=== PATIENT | female | born 1995 | race Caucasian/White ===

== ENCOUNTER 2017-04-23 06:23 | Emergency (ER) | payer MEDICAID ==
[2017-04-23] MEDS ORDERED: AMOXICILLIN TRIHYDRATE 500 MG CAPSULE PO ONE (07:17)
[2017-04-23] MEDS ORDERED: DEXAMETHASONE 4 MG TABLET PO ONE (07:17)
--- NOTE | 2017-04-23 07:27 | ER Document Report ---
ED General - General Chief Complaint: Ear Pain Stated Complaint: EAR PAIN Time Seen by Provider: 04/23/17 07:17 TRAVEL OUTSIDE OF THE [place] IN LAST 30 DAYS: No - HPI Patient complains to provider of: Bilateral ear pain sore throat Notes: Patient coming in for bilateral ear pain and sore throat ongoing for the last 2 days. Patient states mother has similar symptoms. Patient denies occult and swelling difficulty in talking difficulty breathing. Patient denies any other sick contacts no recent antibiotics. Patient is resting comfortably upon my evaluation. - Related Data Allergies/Adverse Reactions: No Known Allergies Allergy (Unverified 04/23/17 06:37) Past Medical History - Social History Smoking Status: Unknown if Ever Smoked Family History: Reviewed & Not Pertinent Patient has suicidal ideation: No Patient has homicidal ideation: No Renal/ Medical History: Denies: Hx Peritoneal Dialysis Review of Systems - Review of Systems Constitutional: No symptoms reported EENT: Ear pain, Throat pain Cardiovascular: No symptoms reported Respiratory: No symptoms reported Gastrointestinal: No symptoms reported Genitourinary: No symptoms reported Female Genitourinary: No symptoms reported Musculoskeletal: No symptoms reported Skin: No symptoms reported Hematologic/Lymphatic: No symptoms reported Neurological/Psychological: No symptoms reported Physical Exam - Vital signs Vitals: Temp Pulse Resp BP Pulse Ox 99.4 F 144 H 20 94/44 L 99 04/23/17 06:31 04/23/17 06:31 04/23/17 06:31 04/23/17 06:31 04/23/17 06:31 Interpretation: Normal - General General appearance: Appears well, Alert - HEENT Head: Normocephalic, Atraumatic Eyes: Normal Conjunctiva: Normal Cornea: Normal Eyelashes: Normal Pupils: PERRL Ears: Normal External canal: Normal Tympanic membrane: Normal Nasal: Normal Mucous membranes: Dry Pharynx: Erythema, Exudate - No signs of airway swelling the uvula edema no signs of airway compromise consistent with erythema exudates with strep throat Neck: Normal - Respiratory Respiratory status: No respiratory distress Chest status: Nontender Breath sounds: Normal Chest palpation: Normal - Cardiovascular Rhythm: Regular Heart sounds: Normal auscultation Murmur: No - Abdominal Inspection: Normal Distension: No distension Bowel sounds: Normal Tenderness: Nontender Organomegaly: No organomegaly - Back Back: Normal, Nontender - Extremities General upper extremity: Normal inspection, Nontender, Normal color, Normal ROM , Normal temperature General lower extremity: Normal inspection, Nontender, Normal color, Normal ROM , Normal temperature, Normal weight bearing. No: Meme's sign - Neurological Neuro grossly intact: Yes Cognition: Normal Orientation: AAOx4 [place] Coma Scale Eye Opening: Spontaneous [place] Coma Scale Verbal: Oriented [place] Coma Scale Motor: Obeys Commands [place] Coma Scale Total: 15 Speech: Normal Motor strength normal: LUE, RUE, LLE, RLE Sensory: Normal - Psychological Associated symptoms: Normal affect, Normal mood - Skin Skin Temperature: Warm Skin Moisture: Dry Skin Color: Normal Course - Re-evaluation Re-evalutation: 04/23/17 13:55 Patient examinations consistent with strep throat. Patient was offered Bicillin versus amoxicillin patient chose amoxicillin patient was also given a dose of Decadron encouraged to use Tylenol Motrin for pain control patient is able tolerate p.o. here will be discharged home. - Vital Signs Vital signs: Temp Pulse Resp BP Pulse Ox 99.4 F 72 16 105/63 100 04/23/17 06:31 04/23/17 08:05 04/23/17 08:05 04/23/17 08:05 04/23/17 08:05 Discharge - Discharge Clinical Impression: Strep pharyngitis Condition: Good Disposition: HOME, SELF-CARE Instructions: Use of [id number] Ibuprofen ([facility]), Strep Throat ([facility]) Additional Instructions: Examination today is consistent with strep pharyngitis. Highly recommend she follow-up with your primary care provider. Please take medications as prescribed. Please take Tylenol and Motrin for pain control. Please make sure that you are drinking plenty of water and fluids Prescriptions: Amoxicillin 500 mg PO TID #30 capsule
[2017-04-23 08:25] VITALS: BP 105/63
== END 2017-04-23 08:05 | disposition home or self-care (01) ==
LOC: ER 06:23
DX: J02.0 Streptococcal pharyngitis (principal); H92.03 Otalgia, bilateral; J02.9 Acute pharyngitis, unspecified
CPT/HCPCS: 99283; 87880; J3490

== ENCOUNTER 2020-02-28 17:57 | Emergency (ER) | payer SELFPAY ==
[2020-02-28] MEDS ORDERED: IBUPROFEN 800 MG TABLET PO ONE (18:26)
--- NOTE | 2020-02-28 18:30 | ER Document Report ---
HPI - HPI Patient complains to provider of: Left foot pain Time Seen by Provider: 02/28/20 18:23 Onset/Duration: Persistent Quality of pain: Achy Pain Level: 3 Context: Patient presents complaining of left foot pain for the past 4 days. Patient noticed a lump to her foot yesterday. Patient denies any known injury. Associated Symptoms: Other - Left foot pain. denies: Fever Exacerbated by: Standing, Movement, Walking Relieved by: Denies Similar symptoms previously: No Recently seen / treated by doctor: No - ROS ROS below otherwise negative: Yes Systems Reviewed and Negative: Yes All other systems reviewed and negative - CONSTITUTIONAL Constitutional: DENIES: Fever - NEURO Neurology: DENIES: Weakness - MUSCULOSKELETAL Musculoskeletal: REPORTS: Extremity pain - DERM Skin Color: Normal Skin Problems: None Past Medical History - General Information source: Patient - Social History Smoking Status: Never Smoker Frequency of alcohol use: None Drug Abuse: None Occupation: None Lives with: Family Family History: Reviewed & Not Pertinent - Medical History Medical History: Negative Renal/ Medical History: Denies: Hx Peritoneal Dialysis Surgical Hx: Negative Vertical Provider Document - CONSTITUTIONAL Agree With Documented VS: Yes Exam Limitations: No Limitations General Appearance: WD/WN, No Apparent Distress - INFECTION CONTROL TRAVEL OUTSIDE OF THE [place] IN LAST 30 DAYS: No - HEENT HEENT: Atraumatic, Normocephalic - NECK Neck: Normal Inspection, Supple. negative: Lymphadenopathy-Left, Lymphadenopathy-Right - RESPIRATORY Respiratory: Breath Sounds Normal, No Respiratory Distress - CARDIOVASCULAR Cardiovascular: Regular Rate, Regular Rhythm, No Murmur - BACK Back: Normal Inspection - MUSCULOSKELETAL/EXTREMETIES Musculoskeletal/Extremeties: MAEW, Tender - Tenderness over cuboid bone of left foot with 1+ edema and faint ecchymosis, Eccymosis - NEURO Level of Consciousness: Awake, Alert, Appropriate Motor/Sensory: No Motor Deficit, No Sensory Deficit - DERM Integumentary: Warm, Dry Notes: Pain area of ecchymosis over the cuboid bone of the left foot Course - Re-evaluation Re-evalutation: 02/28/20 19:18 Patient without any acute fracture, will immobilize and refer to orthopedics for any persistent pain or problems - Vital Signs Vital signs: Temp Pulse Resp BP Pulse Ox 97.7 F 88 14 140/82 H 99 02/28/20 18:02 02/28/20 18:02 02/28/20 18:02 02/28/20 18:02 02/28/20 18:02 - Diagnostic Test Radiology reviewed: Image reviewed, Reports reviewed Procedures - Immobilization Left Foot Pre-Proc Neuro Vasc Exam: Normal Immobilizer type: Toñito wrap, Post-op shoe Performed by: RN Post-Proc Neuro Vasc Exam: Normal Alignment checked and good: Yes Discharge - Discharge Clinical Impression: Left foot pain Condition: Stable Disposition: HOME, SELF-CARE Instructions: Acetaminophen, Toñito Wrap ([facility]), Contusion ([facility]), Ice & Elevation ([facility]), Post-Op Shoe ([facility]) Additional Instructions: Return immediately for any new or worsening symptoms Followup with your primary care provider, call tomorrow to make a followup appointment Referrals: [facility] [Provider Group] - Follow up as needed
--- NOTE | 2020-02-28 19:09 | RADIOLOGY REPORT (SQ) ---
EXAM DESCRIPTION: FOOT LEFT COMPLETE IMAGES COMPLETED DATE/TIME: 02/28/2020 6:51 pm REASON FOR STUDY: left foot pain COMPARISON: None. NUMBER OF VIEWS: Three views. TECHNIQUE: AP, lateral and oblique radiographic images acquired of the left foot. LIMITATIONS: None. FINDINGS: MINERALIZATION: Normal. BONES: No acute fracture or dislocation. No worrisome bone lesions. JOINTS: No effusions. SOFT TISSUES: No soft tissue swelling. No foreign body. OTHER: No other significant finding. IMPRESSION: 1. No acute osseous findings. TECHNICAL DOCUMENTATION: JOB ID: [id number] 2010 [employer]- All Rights Reserved Reading location - IP/workstation name: [email or web address]
[2020-02-28 19:35] VITALS: BP 132/80
== END 2020-02-28 19:33 | disposition home or self-care (01) ==
LOC: ER 17:57
DX: M79.672 Pain in left foot (principal); R58 Hemorrhage, not elsewhere classified; M79.89 Other specified soft tissue disorders
CPT/HCPCS: 99283